=== PATIENT | female | born 1960 | race Hispanic/Latino ===

== ENCOUNTER 2017-05-02 08:32 | Emergency (ER) | payer OTHER ==
[2017-05-02 09:02] LABS: Basophils % (Auto) 0.4 % (0.0-1.8); Eosinophils % (Auto) 0.2 % (0.0-4.3); Hematocrit 40.4 % (30.3-42.9); Hemoglobin 13.7 gm/dl (10.1-14.3); Mean Corpuscular HGB Conc 34 % (30-34); Mean Corpuscular Hemoglobin 27 pg (28-32); Mean Corpuscular Volume 80 fl (79-97); Platelet Count 339 K/mm3 (140-440); Red Blood Count 5.03 M/mm3 (3.65-5.03); Red Cell Distribution Width 13.4 % (13.2-15.2); White Blood Count 16.2 K/mm3 (4.5-11.0)
[2017-05-02] MEDS ORDERED: ZOFRAN ODT ONE (09:02)
[2017-05-02 09:17] LABS: Anion Gap 24 mmol/L; BUN/Creatinine Ratio 38.57; Blood Urea Nitrogen 27 mg/dL (7-17); Calcium 9.6 mg/dL (8.4-10.2); Carbon Dioxide 20 mmol/L (22-30); Chloride 96.8 mmol/L (98-107); Glucose 262 mg/dL (65-100); Potassium 3.4 mmol/L (3.6-5.0); Sodium 137 mmol/L (137-145)
[2017-05-02] MEDS ORDERED: ZOFRAN ODT PO ONE (09:30)
[2017-05-02] MEDS ORDERED: NACL 0.9% 1000 ML 1,000 ML IV ONE (12:17)
[2017-05-02] MEDS ORDERED: MORPHINE IV ONE (12:17)
[2017-05-02] MEDS ORDERED: VALIUM IV ONE (12:17)
[2017-05-02] MEDS ORDERED: DILAUDID IV ONE ×2 (13:19→15:41)
--- NOTE | 2017-05-02 13:24 | Emergency Department Report ---
HPI - General Chief Complaint: Nausea/Vomiting/Diarrhea Time Seen by Provider: 05/02/17 11:36 - HPI HPI: The patient is a 56-year-old female who presents for evaluation of abdominal pain. The patient reports 3 days of right upper quadrant and right flank abdominal pain, 10/10 in severity, radiating from the right flank to the abdomen , sharp in quality, and associated with nausea and nonbilious, nonbloody emesis. The patient denies fever, chills, night sweats, diarrhea, blood in the stool, dark tarry stool, dysuria, genital discharge, inability to pass flatus. ED Past Medical Hx - Past Medical History Previous Medical History?: Yes Hx Congestive Heart Failure: No Hx Diabetes: Yes Hx Seizures: No Hx Asthma: No Hx COPD: No Hx Dementia: No Hx HIV: No Additional medical history: Neck boil, MRSA infection - Surgical History Past Surgical History?: Yes Additional Surgical History: Neck surgery to remove a boil, Tubaligation - Social History Smoking Status: Unknown if ever smoked Substance Use Type: None - Medications Home Medications: Home Medications Medication Instructions Recorded Confirmed Last Taken Type Ciprofloxacin HCl [Ciprofloxacin 500 mg PO Q12H #20 tab 05/10/15 Unknown Rx TAB] HYDROcodone/APAP 10-325 [[place] 1 each PO Q6HR PRN #20 tablet 05/10/15 Unknown Rx 10/325] Sulfamethoxazole/Trimethoprim 1 each PO BID #20 tablet 05/10/15 Unknown Rx [Bactrim DS TAB] metFORMIN [Glucophage] 1,000 mg PO BID #60 tablet 05/10/15 Unknown Rx Ondansetron [Zofran TAB] 4 mg PO Q8HR PRN #15 tablet 05/02/17 Unknown Rx Oxycodone HCl/Acetaminophen 1 each PO Q6HR PRN #20 tablet 05/02/17 Unknown Rx [Percocet 7.5/325 mg] ED Review of Systems ROS: Stated complaint: COUGHING/EMESIS/ABD PAIN Other details as noted in HPI Constitutional: denies: fever ENT: denies: throat or neck pain Respiratory: denies: cough, shortness of breath Cardiovascular: denies: chest pain Endocrine: denies unexplained weight loss or gain Gastrointestinal: reports abdominal pain, nausea Genitourinary: denies: dysuria Musculoskeletal: denies: leg swelling Skin: denies: rash Neurological: denies: headache Hematological/Lymphatic: denies: easy bleeding or easy bruising Psych: denies sadness or hopelessness Physical Exam - Physical Exam Vital Signs: Vital Signs 05/02/17 05/02/17 05/02/17 08:35 10:20 12:42 Temperature 98.4 F 98.5 F Pulse Rate 108 H 118 H 62 Respiratory 20 18 20 Rate Blood Pressure 184/95 Blood Pressure 161/68 110/60 [Left] O2 Sat by Pulse 99 95 97 Oximetry Physical Exam: General: well-nourished, well-developed, no acute distress Head: Normocephalic, atraumatic Eyes: normal sclera ENT: Mucous membranes are pale and dry Neck: trachea midline, neck supple, No neck stiffness, no cervical adenopathy Respiratory: Breath sounds equal bilaterally, no wheezing, rales, or rhonchi Cardio: S1 and S2 present, no murmurs, rubs, gallops, capillary refill is delayed Abdomen: Normoactive bowel sounds, soft abdomen, no rigidity, no guarding or rebound tenderness Chest WALL/Back: right CVA tenderness with percussion Musc: No pitting edema Skin: No rash Neuro: no facial drooping, normal speech Psych: Normal affect ED Course Vital Signs 05/02/17 05/02/17 05/02/17 08:35 10:20 12:42 Temperature 98.4 F 98.5 F Pulse Rate 108 H 118 H 62 Respiratory 20 18 20 Rate Blood Pressure 184/95 Blood Pressure 161/68 110/60 [Left] O2 Sat by Pulse 99 95 97 Oximetry ED Medical Decision Making - Lab Data Result diagrams: 05/02/17 08:43 05/02/17 08:43 - Medical Decision Making The patient was seen and examined by myself. The patient is placed on a cardiac monitor technician and continuous pulse ox. On initial evaluation, the patient was found to be in no distress. Evaluation orders are placed. IV access is established and the patient is given 1 L normal saline fluid bolus and Zofran for nausea, and IV dilaudid for pain. Lab results revealed mildly elevated serum WBC, elevated urinalysis WBC with positive leukocyte esterase, consistent with UTI, and otherwise labs were non-concerning including nml Cr, LFTs, lipase. CT scan of the abdomen and pelvis reveals a distal right ureteral calculus. The patient was reevaluated and reported that her pain persisted. She is given a second dose of IV Dilaudid. The patient was again reevaluated and reported that her pain and nausea were resolved. The patient states that she would like to receive outpatient trial at passing calculus and outpatient follow-up with urology. As the patient is afebrile, with pain controlled, with normal creatinine level, and making urine without difficulty, the patient is stable for discharge with outpatient follow- up. The patient is given follow-up and return instructions, including to follow -up with urologist Dr. Underwood within 24hours, or nikkieer urologist of her choosing. The patient expressed understanding and agreed with the plan. The patient is discharged in stable condition. Critical care attestation.: If time is entered above; I have spent that time in minutes in the direct care of this critically ill patient, excluding procedure time. ED Disposition Clinical Impression: Acute abdominal pain in right upper quadrant, Acute right flank pain, Ureterolithiasis, Dehydration UTI (urinary tract infection) Qualifiers: Urinary tract infection type: acute cystitis Hematuria presence: with hematuria Qualified Code(s): N30.01 - Acute cystitis with hematuria Disposition: TO HOME OR SELFCARE Is pt being admited?: No Does the pt Need Aspirin: No Condition: Stable Instructions: Kidney Stones (ED), Urinary Tract Infection in Women (ED), Flank Pain (ED) Additional Instructions: Make sure to follow-up with a urologist first thing in the morning. Do not take more than the prescribed dose of pain medicine/Percocet, or combine or take the pain medicine prescribed to you today with other pain medicine, sleeping medicines, other sedatives, or with alcohol, as doing so may cause central nervous system sedation and respiratory depression, and potentially cause you to stop breathing and . Additionally, do not drive a vehicle, operate heavy machinery, or engage in any activity that would cause harm to yourself or others after taking the pain medicine prescribed to you. Prescriptions: Ondansetron [Zofran TAB] 4 mg PO Q8HR PRN #15 tablet PRN Reason: Nausea Oxycodone HCl/Acetaminophen [Percocet 7.5/325 mg] 1 each PO Q6HR PRN #20 tablet PRN Reason: Pain Referrals: PRIMARY CARE, [Primary Care Provider] - 3-5 Days KIRAN UNDERWOOD MD [Staff Physician] - 3-5 Days Time of Disposition: 13:23
[2017-05-02 13:29] LABS: Bacteria,Urine 4+ /HPF (Negative); Bilirubin,Urine NEG (Negative); Blood,Urine LG (Negative); Ketones,Urine 80 mg/dL (Negative); Leukocyte Esterase,Urine MOD (Negative); Mucus,Urine 3+ /HPF; Nitrite,Urine NEG (Negative); RBC,Urine > 182.0 /HPF (0.0-6.0); Urobilinogen,Urine < 2.0 mg/dL (<2.0)
--- NOTE | 2017-05-02 13:30 | Cat Scan Report ---
CT OF THE ABDOMEN AND PELVIS WITHOUT CONTRAST HISTORY: Right flank pain. TECHNIQUE: Helical CT without contrast. Sagittal and coronal reformatted images. FINDINGS: A 7 x 7 x 6 mm calculus is identified in the mid to distal right ureter at the level of L5-S1. There is moderate to severe upstream right hydronephrosis. No additional nephrolithiasis is appreciated. No cystic disease or perinephric fluid. The left kidney, left collecting system and bladder are unremarkable. The liver, biliary system, pancreas, spleen, adrenal glands, aorta, bowel loops, uterus and adnexa are within normal limits. Normal appendix. The lung bases are clear. Normal heart size. No suspicious bony lesion. IMPRESSION: Mid to distal right ureteral calculus, obstructing.
[2017-05-02 14:17] LABS: Alanine Aminotransferase 14 units/L (7-56); Albumin 4.1 g/dL (3.9-5); Albumin/Globulin Ratio 1.3 %; Alkaline Phosphatase 72 units/L (35-129); Bilirubin,Direct < 0.2 mg/dL (0-0.2); Bilirubin,Indirect 0.5 mg/dL; Lipase 40 units/L (13-60); Total Protein 7.3 g/dL (6.3-8.2)
[2017-05-02] MEDS ORDERED: LEVAQUIN PO ONE (15:20)
[2017-05-02 15:56] VITALS: BP 160/70
== END 2017-05-02 15:57 | disposition home or self-care (01) ==
LOC: ED 08:32
DX: N20.1 Calculus of ureter (principal); N39.0 Urinary tract infection, site not specified; E86.0 Dehydration; E11.9 Type 2 diabetes mellitus without complications
CPT/HCPCS: 36415; 74176; 80048; 80074; 81001; 83690; 85025; 96361; 96374; 96375; 96376; 99284; J1170; J2270; J3360; J7030; Q0162